=== PATIENT | female | born 1965 | race American Indian/Alaskan Native ===

== ENCOUNTER 2018-05-10 14:09 | Emergency (ER) | payer BC ==
--- NOTE | 2018-05-10 15:12 | EDM.PDOC ---
<Nona Sandhu N - Last Filed: 05/10/18 15:05> ED HPI GENERAL MEDICAL PROBLEM - General Chief Complaint: Neurological Problem Stated Complaint: DIZZINESS, NAUSEOUS Time Seen by Provider: 05/10/18 14:44 - History of Present Illness INITIAL COMMENTS - FREE TEXT/NARRATIVE: Loni is an otherwise healthy 52-year-old female who presents with complaints of "dizziness," which she describes as a sensation of the room spinning around her. She woke up with this feeling this morning, and states that it comes and goes. Reports associated nausea, but denies fevers, chills, or other symptoms. Denies recent illness. States she has had increased stress in her work and personal life, and feels this may be contributing. - Related Data Allergies Allergy/AdvReac Type Severity Reaction Status Date / Time Latex, Natural Rubber Allergy Hives Verified 05/10/18 14:35 Home Meds: Home Meds Insulin Detemir [Levemir] 20 units SQ DAILY 05/10/18 [History] metFORMIN [Glucophage XR] 500 mg PO BID 05/10/18 [History] Past Medical History Neurological History: Reports: Other (See Below) Other Neuro History: dizzzy for days today the worse Endocrine/Metabolic History: Reports: Diabetes, Type II Social & Family History - Tobacco Use Smoking Status *Q: Never Smoker - Caffeine Use Caffeine Use: Reports: Coffee - Recreational Drug Use Recreational Drug Use: No ED ROS GENERAL - Review of Systems Review Of Systems: See Below Constitutional: Reports: No Symptoms. Denies: Fever, Chills, Malaise, Weakness , Fatigue, Decreased Appetite HEENT: Reports: Vertigo, Vision Change (Occasional blurred vision) Respiratory: Reports: No Symptoms. Denies: Shortness of Breath, Pleuritic Chest Pain, Cough Cardiovascular: Reports: No Symptoms. Denies: Chest Pain, Syncope Endocrine: Reports: No Symptoms GI/Abdominal: Reports: Nausea (Associated with vertigo) : Reports: No Symptoms. Denies: Dysuria, Frequency, Urgency Musculoskeletal: Reports: No Symptoms Skin: Reports: No Symptoms Neurological: Reports: Dizziness ((sensation of room spinning)). Denies: Confusion, Syncope Psychiatric: Reports: No Symptoms Hematologic/Lymphatic: Reports: No Symptoms Immunologic: Reports: No Symptoms ED EXAM, NEURO - Physical Exam Exam: See Below Text/Narrative:: This is a pleasant 52-year-old woman in no acute distress. She is alert and oriented, and converses appropriately. Exam Limited By: No Limitations General Appearance: Alert, No Apparent Distress Eye Exam: Bilateral Eye: EOMI, Normal Inspection, PERRL Ears: Normal External Exam, Normal Canal, Hearing Grossly Normal, Normal TMs Nose: Normal Inspection Throat/Mouth: Normal Inspection, Normal Gums, Normal Voice, No Airway Compromise Head Exam: Atraumatic Neck: Normal Inspection, Supple, Non-Tender Respiratory/Chest: No Respiratory Distress, Lungs Clear, Normal Breath Sounds Cardiovascular: Regular Rate, Rhythm, No Edema, No Murmur, No Rub GI/Abdominal: Normal Bowel Sounds, Soft, Non-Tender, No Distention, No Mass (Female) Exam: Deferred Neurological: Alert, Normal Mood/Affect, CN II-XII Intact, No Motor/Sensory Deficits, Oriented x 3 Psychiatric: Normal Affect, Normal Mood Skin Exam: Warm, Dry, Intact Course - Vital Signs Last Recorded V/S: Last Vital Signs Temp 208.9 F H 05/10/18 14:33 Pulse 63 05/10/18 14:33 Resp 18 05/10/18 14:33 BP 143/58 H 05/10/18 14:33 Pulse Ox Departure - Departure Disposition: Home, Self-Care 01 Clinical Impression: Vertigo - Discharge Information Referrals: PCP,None [Primary Care Provider] - Forms: ED Department Discharge Additional Instructions: Use meclizine as needed for your dizzy symptoms, Please followup with your primary care provider in 3-5 days if not better, please call return to the emergency department with worsening of symptoms. Resident/PA IDX Provider #_ * Ian Hightower MD was personally available for consultation in the ED. I have reviewed the chart and agree with the documentation as recorded by the MECHANICAL EQUIPMENT SALES ENGINEER, including the assessment, treatment plan and disposition. * Ian Hightower MD personally saw and examined the patient. I have reviewed and agree with the MECHANICAL EQUIPMENT SALES ENGINEER's findings. <Ian Reyes - Last Filed: 05/10/18 15:15> Departure - Departure Time of Disposition: 15:14 Condition: Good - Assessment/Plan Plan: Assessment Acuity = acute Site and laterality = vertigo Etiology = unclear etiology Manifestations = none Location of injury = Home Lab values = none Plan Because she is asymptomatic at this time elected to treat empirically with meclizine 25 mg by mouth 3 times a day when necessary total #100 her follow-up primary care 3-5 days if no improvement This note was dictated using [employer] voice recognition software please call with any questions on syntax or grammar.
== END 2018-05-10 15:39 | disposition home or self-care (01) ==
LOC: JP.ED 14:09
DX: R42 Dizziness and giddiness (principal); Z91.040 Latex allergy status; Z79.4 Long term (current) use of insulin; E11.9 Type 2 diabetes mellitus without complications
CPT/HCPCS: 99284

== ENCOUNTER 2023-08-13 11:29 | Emergency (ER) | payer BC ==
[2023-08-13] MEDS ORDERED: Sodium Chloride 0.9% 10 ML Syringe FLUSH PRN (13:56)
[2023-08-13 14:12] LABS: BASOPHILS PERCENT AUTO 0.2 % (0.1-1.3); EOSINOPHILS ABSOLUTE AUTO 0.17 K/uL (0.00-0.40); EOSINOPHILS PERCENT AUTO 2.1 % (0.0-5.4); HEMATOCRIT 41.1 % (34.3-46.0); HEMOGLOBIN 13.6 g/dL (11.2-15.5); IMMATURE GRAN PERCENT AUTO 0.1 % (0.0-0.7); LYMPHOCYTES ABSOLUTE AUTO 2.76 K/uL (0.8-3.3); LYMPHOCYTES PERCENT AUTO 33.8 % (11.4-47.7); MEAN CORPUSCULAR HEMOGLOBIN 27.1 pg (31.6-35.5); MEAN CORPUSCULAR HGB CONC 33.1 g/dL (31.6-35.5); MONOCYTES ABSOLUTE AUTO 0.74 K/uL (0.20-0.90); MONOCYTES PERCENT AUTO 9.1 % (3.3-12.6); NEUTROPHILS ABSOLUTE AUTO 4.47 K/uL (1.0-7.6); NEUTROPHILS PERCENT AUTO 54.7 % (40.0-78.1); PLATELET COUNT,PLT 198 K/uL (130-375); RED BLOOD CELL COUNT 5.01 M/uL (3.77-5.24); WHITE BLOOD CELL COUNT,WBC 8.2 K/uL (3.2-11.0)
[2023-08-13 14:14] LABS: BASOPHILS ABSOLUTE AUTO 0.02 K/uL (0.00-0.10); IMMATURE GRAN ABSOLUTE AUTO 0.01 K/uL (0.00-0.23)
[2023-08-13] MEDS ORDERED: Ketorolac 30 MG/ML SDV IVPUSH ONE (14:32)
[2023-08-13 14:40] LABS: A/G RATIO 0.9 (1.2-2.2); ALANINE AMINOTRANSFERASE,ALT 27 U/L (12-78); ALBUMIN 3.6 g/dL (3.4-5.0); ALKALINE PHOSPHATASE 135 U/L (46-116); ASPARTATE AMNIOTRANSFERASE,AST 37 U/L (15-37); BILIRUBIN TOTAL 0.4 mg/dL (0.2-1.0); BLOOD UREA NITROGEN,BUN 8 mg/dL (7-18); C-REACTIVE PROTEIN 0.37 mg/dL (0.0-0.3); CALCIUM 8.5 mg/dL (8.5-10.1); CARBON DIOXIDE,CO2 28 mmol/L (21-32); CHLORIDE,CL 103 mmol/L (100-108); CREATININE 0.7 mg/dL (0.6-1.0); EST CRCL DRUG DOSING (CG) 80.01 mL/min; ESTIMATED GFR 99 mL/min (>60); GLUCOSE RANDOM 135 mg/dL (74-106); POTASSIUM,K 3.8 mmol/L (3.6-5.2); PROTEIN TOTAL,TP 7.8 g/dL (6.4-8.2); SODIUM,NA 139 mmol/L (140-148)
[2023-08-13 14:41] LABS: ANION GAP 11.8 mmol/L (5.0-14.0)
[2023-08-13] MEDS ORDERED: Iopamidol 612 MG/ML 100 ML Bottle IV SCH (15:00)
[2023-08-13] MEDS ORDERED: Sodium Chloride 0.9% 50 ML IV SCH (15:00)
[2023-08-13] MEDS ORDERED: diphenhydrAMINE 50 MG/ML SDV IVPUSH ONE (15:03)
== END 2023-08-13 16:43 | disposition home or self-care (01) ==
LOC: JP.ED 11:29
DX: R10.12 Left upper quadrant pain (principal); E11.9 Type 2 diabetes mellitus without complications; Z91.041 Radiographic dye allergy status; Z91.040 Latex allergy status
CPT/HCPCS: 36415; 74177; 80053; 83605; 83690; 85025; 86140; 96374; 96375; 99284; J1200; J1885; J3490; Q9967

== ENCOUNTER 2024-07-06 12:27 | Day surgery (SDC) | payer BC ==
[~2024-07-06 12:27] MED LIST: Bupivacaine 0.5% 30 ML SDV ONE; Midazolam 1 MG/ML 2 ML SDV ONE; Propofol 200 MG/20 ML SDV ONE; fentaNYL 100 MCG/2 ML SDV ONE
[2024-07-06] MEDS: Lactated Ringers 1,000 ML IV SCH (13:37)
[2024-07-06] MEDS: Nozin Nasal Sanitizer NASBOTH ONE (13:42)
[2024-07-06] MEDS ORDERED: Bupivacaine 0.5% 30 ML SDV ONE (14:26)
[2024-07-06] MEDS ORDERED: Rocuronium 50 MG/5 ML Vial ONE (14:27)
[2024-07-06] MEDS ORDERED: Dexamethasone 4 MG/ML SDV ONE (14:27)
[2024-07-06] MEDS ORDERED: Neostigmine Methylsulfate 10 MG/10 ML MDV ONE (14:27)
[2024-07-06] MEDS ORDERED: Succinylcholine 200 MG/10 ML MDV ONE (14:27)
[2024-07-06] MEDS ORDERED: Ondansetron 4 MG/2 ML SDV ONE (14:27)
[2024-07-06] MEDS ORDERED: Glycopyrrolate 0.2 MG/ML 5 ML MDV ONE (14:27)
[2024-07-06] MEDS: ceFAZolin 2 GM in Premix Bag 1 BAG IV ONE (14:35)
[2024-07-06] MEDS ORDERED: fentaNYL 100 MCG/2 ML SDV ONE (15:19)
[2024-07-06] MEDS: Bupivacaine 0.5% 30 ML SDV ONE (15:26)
== END 2024-07-06 19:34 | disposition home or self-care (01) ==
LOC: JP.SDS 12:27
PROVIDERS: ATTEND Specialist
DX: M75.101 Unspecified rotator cuff tear or rupture of right shoulder, not specified as traumatic (principal); E11.9 Type 2 diabetes mellitus without complications; E66.9 Obesity, unspecified; F17.200 Nicotine dependence, unspecified, uncomplicated
CPT/HCPCS: 01630; 29826; 29827; 82947; A9270; C1713; J0330; J0665; J0690; J1100; J1596; J2250; J2405; J2704; J2710; J3010; J7120; J3490

== ENCOUNTER 2024-12-17 06:01 | Day surgery (SDC) | payer MEDICAID ==
[2024-12-17] MEDS: Lactated Ringers 1,000 ML IV SCH (06:42)
[2024-12-17] MEDS ORDERED: Propofol 200 MG/20 ML SDV ONE (06:51)
[2024-12-17] MEDS ORDERED: Midazolam 1 MG/ML 2 ML SDV ONE (06:51)
[2024-12-17] MEDS ORDERED: fentaNYL 50 MCG/ML SDV ONE (06:52)
== END 2024-12-17 08:30 | disposition home or self-care (01) ==
LOC: JP.SDS 06:01
PROVIDERS: ATTEND Internal Medicine
DX: K25.9 Gastric ulcer, unspecified as acute or chronic, without hemorrhage or perforation (principal)
CPT/HCPCS: J2250; J2704; J3010; J7120